=== PATIENT | male | born 1965 | race Caucasian/White ===

== ENCOUNTER 2019-05-01 19:27 | Emergency (ER) | payer SELFPAY ==
[2019-05-01 19:37] VITALS: BP 163/89
--- NOTE | 2019-05-01 20:29 | UC ---
Head Injury HPI - HPI Summary HPI Summary: slipped on ice tonight, fell and hit back of his head. Was Bleeding from scalp. Denied LOC, CHANGE IN SPEECH, N/V,headache. Reports pain at sight of impact Denies change in vision, n/v, or neck pain. He feels he's speaking normally and does not feel off. - History Of Current Complaint Chief Complaint: UCHeadInjury Stated Complaint: SP-WC FALL Time Seen by Provider: 05/01/19 20:14 Hx Obtained From: Patient Onset/Duration: Sudden Onset Pain Intensity: 4 Pain Scale Used: 0-10 Numeric Associated Signs And Symptoms: Negative: LOC (Time In Secs./Mins/Hrs), Confusion , Memory Loss, Seizure, Neck Pain, Nausea, Vomiting - Allergies/Home Medications Allergies/Adverse Reactions: Allergies Allergy/AdvReac Type Severity Reaction Status Date / Time No Known Allergies Allergy Verified 05/01/19 19:32 Home Medications: Home Medications Atenolol TAB* [Tenormin TAB* 25 MG] 1 tab PO DAILY 05/01/19 [History Confirmed 05/01/19] Lisinopril TAB* [Prinivil TAB 5 MG*] 10 mg PO DAILY 05/01/19 [History Confirmed 05/01/19] hydrOXYzine HCL TAB* [Atarax 25 MG TAB*] 1 tab PO DAILY 05/01/19 [History Confirmed 05/01/19] PMH/Surg Hx/FS Hx/Imm Hx Previously Healthy: Yes Cardiovascular History: Hypertension Neurological History: Other - HX OF SAH 3 YRS. AGO. - Surgical History Surgical History: Yes Surgery Procedure, Year, and Place: hernia repair x2 - Family History Known Family History: Positive: Non-Contributory - Social History Alcohol Use: Rare Substance Use Type: None Smoking Status (MU): Never Smoked Tobacco Amount Used/How Often: daily Review of Systems All Other Systems Reviewed And Are Negative: Yes Constitutional: Negative: Fever, Chills, Fatigue Skin: Positive: Bruising - BACK OF HEAD W/ LACERATION. Negative: Rash Eyes: Negative: Blurred Vision ENT: Negative: Dental Pain Respiratory: Negative: Shortness Of Breath Gastrointestinal: Negative: Vomiting, Nausea Motor: Negative: Weakness Musculoskeletal: Negative: Myalgia Neurological: Negative: Headache, Weakness, Paresthesia, Numbness Physical Exam Triage Information Reviewed: Yes Appearance: Well-Appearing Vital Signs: Initial Vital Signs Temp 97.3 F 05/01/19 19:34 Pulse 92 05/01/19 19:34 Resp 17 05/01/19 19:34 BP 163/89 05/01/19 19:34 Pulse Ox 100 05/01/19 19:34 Vital Signs Reviewed: Yes Eyes: Positive: Conjunctiva Clear ENT: Positive: Uvula midline Dental: Negative: Dental Fracture @ Neck: Positive: Supple, Nontender - from, No Lymphadenopathy Respiratory: Positive: No respiratory distress Neurological: Positive: Alert, Other: - cn ii-xii intact, PERRLA. Negative: Fatigued Skin: Positive: Other - small laceration at back of head Diagnostics - Radiology No standard instances Radiology Interpretation Completed By: Radiologist Summary of Radiographic Findings: IMPRESSION: Small volume of acute subarachnoid hemorrhage at the anterior left paramedian frontal lobe. Addendum created by Butch Galvin MD on 05/01/2019 9:07:02 PM EST In discussion with referring physician, patient with history of subarachnoid hemorrhage in the same location that has remained stable. Question the possibility that hyperdensity reflects dystrophic calcification. If prior examination is made available, addendum will be made Head Injury Course/Dx - Course Course Of Treatment: Head injury with likely SAH although RAdiologist has addendum. I strongly feel pt. should go to ED via ambulance for his safety. He is stable and no active bleeding and good vitals w/ slight increase in BP. NO abnormal neuro deficits on exam. Will let cut on head heal by secondary intention. He has decided not to go even after explanation of risks including , worsening bleed or neuro changes. He does not want to 'get stuck in the hospital for days'. He is getting a ride home with taxi. I stncruagd him to see neuro tomorrow or at least another provider leo. - Differential Dx/Diagnosis Differential Diagnosis/HQI/PQRI: Cerebral Contusion, Cervical Sprain, Concussion With LOC, Contusion, Intracranial Bleed Provider Diagnosis: Subarachnoid bleed Discharge ED - Sign-Out/Discharge Documenting (check all that apply): Patient Departure All imaging exams completed and their final reports reviewed: Yes - Discharge Plan Condition: Stable Disposition: AGAINST MEDICAL ADVICE Patient Education Materials: Head Injury (ED) Referrals: No Primary Care Phys,NOPCP [Primary Care Provider] - Additional Instructions: I STRONGLY ENCOURAGE YOU TO GO TO EMERGENCY ROOM VIA AMBULANCE SINCE YOU HAVE A BRAIN BLEED. YOU HAVE DECIDED AGAINST THIS. WE DISCUSSED RISK OF , WORSENING BRAIN BLEED, DECLINE IN FUNCTION. PLEASE GO TO THE EMERGENCY ROOM IF ANYTHING CHANGES. - Billing Disposition and Condition Condition: STABLE Disposition: Against Medical Advice
== END 2019-05-01 21:24 | disposition left against medical advice (07) ==
LOC: UCCORT 19:27
DX: S06.6X0A Traumatic subarachnoid hemorrhage without loss of consciousness, initial encounter (principal); S01.01XA Laceration without foreign body of scalp, initial encounter; I10 Essential (primary) hypertension; Z79.899 Other long term (current) drug therapy; W00.9XXA Unspecified fall due to ice and snow, initial encounter; Y92.9 Unspecified place or not applicable
CPT/HCPCS: 70450; 99202; G0463

== ENCOUNTER 2019-08-28 14:07 | Emergency (ER) | payer OTHER ==
[2019-08-28 15:27] VITALS: BP 155/93
[2019-08-28] MEDS ORDERED: Ondansetron ODT TAB* 4 MG PO ONE (16:46)
--- NOTE | 2019-08-28 16:46 | UC ---
FLU HPI - HPI Summary HPI Summary: Pt presents with c/o fever, chills, body aches, ST, nausea, vomiting, diarrhea X 2 days. - History of Current Complaint Chief Complaint: UCGeneralIllness Stated Complaint: HEADACHE NAUSEA SORE THROAT Time Seen by Provider: 08/28/19 16:28 Hx Obtained From: Patient Onset/Duration: Sudden Onset, Lasting Days Severity Currently: Mild Severity Initially: Moderate Pain Intensity: 7 Associated Signs & Symptoms: Positive: Fever Related Hx: Possible Flu/Infectious Exposure - Risk Factors Influenza Risk Factors: Negative - Allergy/Home Medications Allergies/Adverse Reactions: Allergies Allergy/AdvReac Type Severity Reaction Status Date / Time No Known Allergies Allergy Verified 08/28/19 15:27 Home Medications: Home Medications Atenolol TAB* [Tenormin TAB* 25 MG] 1 tab PO DAILY 05/01/19 [History Confirmed 08/28/19] Lisinopril TAB* [Prinivil TAB 5 MG*] 10 mg PO DAILY 05/01/19 [History Confirmed 08/28/19] hydrOXYzine HCL TAB* [Atarax 25 MG TAB*] 1 tab PO DAILY 05/01/19 [History Confirmed 08/28/19] Ondansetron HCl [Zofran] 4 mg PO Q8H PRN #15 tablet 08/28/19 [Rx] PMH/Surg Hx/FS Hx/Imm Hx Previously Healthy: Yes - Surgical History Surgical History: Yes Surgery Procedure, Year, and Place: hernia repair x2 - Family History Known Family History: Positive: Cardiac Disease - Social History Occupation: Employed Full-time Lives: With Family Alcohol Use: Rare Substance Use Type: None Smoking Status (MU): Never Smoked Tobacco Amount Used/How Often: daily Have You Smoked in the Last Year: No Review of Systems All Other Systems Reviewed And Are Negative: Yes Constitutional: Positive: Fever, Chills Skin: Positive: Negative Eyes: Positive: Negative ENT: Positive: Sore Throat Cardiovascular: Positive: Negative Gastrointestinal: Positive: Negative Genitourinary: Positive: Negative Motor: Positive: Negative Neurovascular: Positive: Negative Musculoskeletal: Positive: Myalgia Neurological/Mental Status: Positive: Headache Psychological: Positive: Negative Is Patient Immunocompromised?: No Physical Exam Triage Information Reviewed: Yes Appearance: Ill-Appearing Vital Signs: Initial Vital Signs Temp 97.5 F 03/11/20 15:24 Pulse 77 08/28/19 15:24 Resp 16 08/28/19 15:24 BP 155/93 08/28/19 15:24 Pulse Ox 99 08/28/19 15:24 Vital Signs Reviewed: Yes Eye Exam: Normal ENT: Positive: Tonsillar swelling - right tonsil larger than left Dental Exam: Normal Neck exam: Normal Respiratory Exam: Normal Cardiovascular Exam: Normal Musculoskeletal Exam: Normal Neurological Exam: Normal Psychological Exam: Normal Skin Exam: Normal Flu Course/Dx - Differential Dx/Diagnosis Differential Diagnosis/HQI/PQRI: Influenza, Upper Respiratory Infection Provider Diagnosis: Viral syndrome Discharge ED - Sign-Out/Discharge Documenting (check all that apply): Patient Departure All imaging exams completed and their final reports reviewed: No Studies - Discharge Plan Condition: Stable Disposition: HOME Prescriptions: Ondansetron HCl [Zofran] 4 mg PO Q8H PRN #15 tablet PRN Reason: Nausea Patient Education Materials: Loperamide (By mouth), Viral Syndrome (ED) Forms: *Work Release Referrals: [facility] [place] [facility]FERR[facility] [Outside] - If Needed No Primary Care Phys,NOPCP [Primary Care Provider] - - Billing Disposition and Condition Condition: STABLE Disposition: Home
[2019-08-28 16:52] LABS: Influenza A Molecular Negative (Negative); Influenza B Molecular Negative (Negative)
== END 2019-08-28 17:08 | disposition home or self-care (01) ==
LOC: UCCORT 14:07
DX: B34.9 Viral infection, unspecified (principal)
CPT/HCPCS: 99212; A9270-GY; G0463